=== PATIENT | female | born 1970 ===

== ENCOUNTER → 2021-02-09 | Outpatient (CLI) | payer OTHER | END | disposition home or self-care (01) | LOC: Rad HDHVI 11:26 | PROVIDERS: ATTEND Internal Medicine Cardiovascular Disease | DX: Z01.810 Encounter for preprocedural cardiovascular examination (principal); I34.1 Nonrheumatic mitral (valve) prolapse | CPT/HCPCS: 93306 ==

== ENCOUNTER → 2021-10-07 | Outpatient (CLI) | payer OTHER ==
[2021-10-07 13:03] LABS: Glucose 116 mg/dL (74-106)
[2021-10-07 13:09] LABS: Cholesterol 225 mg/dL (< 200); HDL Cholesterol 47 mg/dL (40-59); LDL Cholesterol 173 mg/dL (< 100); Triglycerides 117 mg/dL (< 150)
== END | disposition home or self-care (01) ==
LOC: LAB 09:46
PROVIDERS: ATTEND Internal Medicine
DX: E03.9 Hypothyroidism, unspecified (principal)
CPT/HCPCS: 36415; 80061; 82947; 83036; 84439; 84443

== ENCOUNTER → 2021-12-06 | Outpatient (CLI) | payer OTHER ==
[2021-12-06 12:19] LABS: Albumin 3.3 g/dL (3.4-5.0); Aspartate Aminotransferase 13 U/L (15-37)
[2021-12-06 12:22] LABS: Alanine Aminotransferase 30 U/L (13-56); Alkaline Phosphatase 88 U/L (45-117); Bilirubin, Direct < 0.1 mg/dL (0-0.2); Bilirubin, Total 0.1 mg/dL (0.2-1.0); Cholesterol 164 mg/dL (< 200); HDL Cholesterol 47 mg/dL (40-59); LDL Cholesterol 102 mg/dL (< 100); Total Protein 7.4 g/dL (6.4-8.2); Triglycerides 104 mg/dL (< 150)
== END | disposition home or self-care (01) ==
LOC: LAB 08:10
PROVIDERS: ATTEND Internal Medicine
DX: E78.5 Hyperlipidemia, unspecified (principal)
CPT/HCPCS: 36415; 80061; 80076

== ENCOUNTER → 2022-04-01 | Outpatient (CLI) | payer OTHER | END | disposition home or self-care (01) | LOC: RADONC 12:15 | PROVIDERS: ATTEND Internal Medicine | DX: R06.02 Shortness of breath (principal); M47.814 Spondylosis without myelopathy or radiculopathy, thoracic region | CPT/HCPCS: 71046 ==